=== PATIENT | male | born 1955 | race Two or more races ===

== ENCOUNTER → 2025-01-09 | Outpatient (CLI) | payer MEDICARE, SELFPAY ==
--- NOTE | 2025-01-09 10:12 | XR_ITS ---
Examination: CT abdomen and pelvis without contrast. Coronal 3-D reconstructions. Sagittal 2-D reconstructions. Date and time of exam: January 09, 2025, 1027 hours INDICATIONS: Right-sided flank pain beginning 5 days ago CTDI: vol (mGy): 7.72 DLP: (mGycm): 461 Technique: Axial images of the abdomen have been obtained, 3 mm slice thickness Intravenous contrast material has not been administered. Low dose protocols were performed. One or more of the following dose reduction techniques were used; automated exposure control, adjustment of the mA and/or KV according to patient size, use of iterative reconstruction technique. Findings: No focal liver or splenic lesions No gallstones No pancreatic or adrenal mass Tiny 1 to 3 mm bilateral renal calculi Left parapelvic cysts No ureteral calculi No bowel obstruction Normal appendix Colonic diverticulosis No bladder mass or bladder calculi Prostatomegaly AP dimension 4.3 cm Fat-containing inguinal hernias Prominent osteopenia IMPRESSION: Multiple nonobstructing bilateral renal calculi, no hydronephrosis or ureteral calculi Normal appendix No bladder mass or bladder calculi
== END | disposition home or self-care (01) ==
PROVIDERS: PCP Family Medicine; Referring Provider Family Medicine; Visit Provider Family Medicine
DX: N20.0 Calculus of kidney (principal)
CPT/HCPCS: 74176